=== PATIENT | female | born 1990 | race Caucasian/White ===

== ENCOUNTER 2017-10-01 21:04 | Inpatient (IN) | payer OTHER ==
[~2017-10-01] VITALS: Ht 172.7 cm; Wt 72.3 kg
[~2017-10-01 21:04] MED LIST: MEDR150I INJ
[2017-10-01] MEDS ORDERED: SODIUM CHLORIDE 0.9% 1000ML 1,000 ML IV STA (21:28)
[2017-10-01] MEDS ORDERED: OPTIRAY 320 IV PRN (21:45)
[2017-10-01 21:50] LABS: BASO % 0.3 %; BASO ABS # 0.03 K/uL (0-0.2); EOS % 2.4 %; EOS ABS # 0.23 K/uL (0-0.5); HEMOGLOBIN 12.1 g/dL (12.0-16.0); IG# 0.02 K/uL (0.00-0.02); LYMPH % 12.8 %; LYMPH ABS # 1.25 K/uL (1.2-3.4); MEAN CELL VOLUME 121.7 fL (80-100); MEAN CORPUSCULAR HGB CONC 37.8 g/dl (32-36); MEAN PLATELET VOLUME 9.8 fL (7.4-10.4); MONO % 10.6 %; MONO ABS # 1.03 K/uL (0.11-0.59); NEUT % 73.7 %; PLATELET COUNT 323 K/uL (130-400); RED CELL DISTRIBUTION WIDTH CV 15.2 % (11.5-14.5); RED CELL DISTRIBUTION WIDTH SD 66.4 fL (36.4-46.3); WHITE BLOOD COUNT 9.76 K/uL (4.8-10.8)
[2017-10-01] MEDS ORDERED: MEDR150I INJ (21:53)
[2017-10-01] MEDS ORDERED: IBUP-1050 PO (21:53)
[2017-10-01 22:22] LABS: ISTAT CREATININE 0.5 mg/dl (0.6-1.3); ISTAT IONIZED CALCIUM 1.17 mmol/l (1.12-1.32)
--- NOTE | 2017-10-01 22:38 | DIAGNOSTIC IMAGING REPORT ---
(CHEST FOR PE) ANGIO WITH CT DOSE: 188.47 mGy.cm HISTORY: 27 years-old Female presents with acute left leg swelling. Clinical concern for DVT and pulmonary embolus. TECHNIQUE: Multiple CTA images of the chest were obtained after the intravenous administration of 64 ml Optiray 320. Coronal and sagittal MIPS were obtained from the axial data set and were submitted for review. A dose lowering technique was utilized adhering to the principles of ALARA. COMPARISON: None. FINDINGS: CTA: Heart is normal in size without pericardial effusion. Thoracic aorta is normal in course and caliber without aneurysm or dissection. Imaged great vessels are patent. Ovoid peripherally hyperdense structure within the IVC at the level of the liver measures 11 x 8 mm and measures up to 3.5 cm in length. There is suboptimal opacification of the pulmonary arterial tree. Evaluation of the segmental and subsegmental branches limited secondary to respiratory motion. There are multiple filling defects noted within the distal right lower lobe are, segmental and subsegmental branches of the basal right lower lobe nicely seen on images 110-121 of series 4. Additionally, there is probable pulmonary emboli within lobar and segmental branches of the left lower lobe. No evidence of right heart strain. CT CHEST: Thyroid is mildly heterogeneous without dominant thyroid nodule identified. No pathologic adenopathy identified. No pneumothorax, pleural effusion, focal airspace consolidation or overt pulmonary edema. No focal pulmonary infarction. Minimal dependent bibasilar atelectasis. The central airways appear patent. Imaged upper abdominal structures are within normal limits. Soft tissues are within normal limits. Bones appear intact. IMPRESSION: 1. Suboptimal evaluation of the pulmonary arterial tree secondary to contrast bolus timing and respiratory motion. Pulmonary emboli are present within the distal right lower lobar, segmental and subsegmental branches of the basal right lower lobe. No evidence of right heart strain or pulmonary infarction. 2. Ill-defined peripherally hyperdense structure within the IVC is noted suggesting peripheral calcifications or peripheral reflux of contrast around a thrombus measuring up to 3.5 cm in length, partially imaged and nicely seen on the coronal and sagittal images. Correlation with CT of the abdomen and pelvis with IV contrast recommended to further characterize. The above report was generated using voice recognition software. It may contain grammatical, syntax or spelling errors. Electronically signed by: Boone Ge M.D. 10/01/2017 10:36 PM Dictated Date/Time: 10/01/2017 10:24 PM
[2017-10-01] MEDS ORDERED: HEPARIN SOD (PORCINE) 1000 UNIT/ML 10 ML VIAL ONE (22:53)
[2017-10-01] MEDS ORDERED: HEPARIN 25000 UNIT/500 ML D5W ONE (22:54)
[2017-10-01 23:06] LABS: INR 1.1 (0.9-1.1); PTT PATIENT 22.2 SECONDS (21.0-31.0)
[2017-10-01 23:38] LABS: ALBUMIN 3.4 gm/dl (3.4-5.0); BLOOD UREA NITROGEN 7 mg/dl (7-18); CALCIUM 8.3 mg/dl (8.5-10.1); CARBON DIOXIDE 26 mmol/L (21-32); CREATININE 0.61 mg/dl (0.60-1.20); GLUCOSE 95 mg/dl (70-99); SODIUM 136 mmol/L (136-145)
[2017-10-01] MEDS ORDERED: NSS + 20MEQ KCL 1000ML 1,000 ML IV ONE (23:45)
[2017-10-01] MEDS ORDERED: ACETAMINOPHEN 325 MG TAB PO PRN (23:45)
[2017-10-01] MEDS ORDERED: MoRPHine SULFATE 4 MG/ML 1 ML CARP\\VIAL IV PRN (23:45)
[2017-10-01] MEDS ORDERED: LORAZEPAM 2 MG/ML 1 ML VIAL IV PRN (23:45)
[2017-10-01] MEDS ORDERED: PROCHLORPERAZINE INJ 5 MG in SYRINGE 4 ML IV PRN (23:45)
[2017-10-01 23:49] LABS: ALKALINE PHOSPHATASE 84 U/L (45-117); ALT/SGPT 18 U/L (12-78); AST/SGOT 11 U/L (15-37); TOTAL PROTEIN 7.5 gm/dl (6.4-8.2)
[2017-10-02 00:10] VITALS: BP 138/89; PULSE 110; TEMP 37.2; O2SAT 96; Ht 172.7 cm; Wt 72.3 kg
[2017-10-02] MEDS ORDERED: POTASSIUM CHLORIDE 10 MEQ TABCR PO SCH (00:30)
[2017-10-02] MEDS ORDERED: HEPARIN 25,000 UNIT/500ML D5W 500 ML IV PRN (00:30)
[2017-10-02] MEDS ORDERED: LORAZEPAM INJ 0.5 MG in SYRINGE 0.75 ML IV PRN (00:30)
--- NOTE | 2017-10-02 00:37 | EMERGENCY ROOM VISIT NOTE ---
History Report prepared by Kayla: Cornelia Sandoval Under the Supervision of: Preston FrancisO. First contact with patient: 21:16 Chief Complaint: SWELLING TO EXTREMITY Stated Complaint: LEFT LEG SWELLING History of Present Illness The patient is a 27 year old female who presents to the Emergency Room with complaints of persistent left leg swelling that began 2 days ago. She notes that she noticed the swelling but avoided it until today. Pt denies headache, change in vision, fevers, chest pain, shortness of breath, nausea, vomiting, diarrhea, pain with urination, and melena. The patient states that she a blood clot diagnosed a year and a half ago. At that time she was never placed on blood thinners. She notes she takes Depo. The patient states she works at [employer]. She denies a history of cancer. She notes she is a smoker. Source of History: patient Onset: 2 days ago Position: leg (left) Quality: other (left leg swelling) Timing: other (persistent) Associated Symptoms: No fevers, No headache, No chest pain, No SOB, No nausea, No vomiting, No melena, No diarrhea Review of Systems See HPI for pertinent positives & negatives. A total of 10 systems reviewed and were otherwise negative. Past Medical & Surgical Medical Problems: (1) Pulmonary embolism Family History Patient reports no known family medical history. Social History Smoking Status: Current Every Day Smoker Smokeless Tobacco Use: No Alcohol Use: none Drug Use: none Marital Status: in relationship Housing Status: lives with significant other Occupation Status: employed Current/Historical Medications Scheduled Medroxyprogesterone Acetate (C (Depo-Provera Contraceptiv), 1 DOSE INJ Q3MO Scheduled PRN Ibuprofen (Advil), 200-600 MG PO Q4H PRN for Pain or Fever Allergies Coded Allergies: No Known Allergies (Unverified , NONE, 10/01/17) Physical Exam Vital Signs Date Time Temp Pulse Resp B/P (MAP) Pulse Ox O2 Delivery O2 Flow Rate FiO2 10/01/17 21:12 37.1 113 16 166/104 100 Room Air Physical Exam GENERAL: Sitting up in bed, disheveled, in no acute distress EYE EXAM: normal conjunctiva. OROPHARYNX: no exudate, no erythema, lips, buccal mucosa, and tongue normal and mucous membranes are moist NECK: supple, no nuchal rigidity, no adenopathy, non-tender LUNGS: Clear to auscultation. Normal chest wall mechanics HEART: Tachycardic rate. No murmurs, S1 normal and S2 normal ABDOMEN: abdomen soft, non-tender, normo-active bowel sounds, no masses, no rebound or guarding. BACK: Back is symmetrical on inspection and there is no deformity, no midline tenderness, no CVA tenderness. SKIN: no rashes and no bruising UPPER EXTREMITIES: upper extremities are grossly normal. LOWER EXTREMITIES: left lower extremity is swollen, DP and PT are intact, slight pallor and blue discoloration. Bedside ultrasound shows DVT present. NEURO EXAM: Normal sensorium, cranial nerves II-XII grossly intact, normal speech, no gross weakness of arms, no gross weakness of legs. Medical Decision & Procedures ER Provider Diagnostic Interpretation: Radiology results as stated below per my review and the radiologist's interpretation: (CHEST FOR PE) ANGIO WITH CT DOSE: 188.47 mGy.cm HISTORY: 27 years-old Female presents with acute left leg swelling. Clinical concern for DVT and pulmonary embolus. TECHNIQUE: Multiple CTA images of the chest were obtained after the intravenous administration of 64 ml Optiray 320. Coronal and sagittal MIPS were obtained from the axial data set and were submitted for review. A dose lowering technique was utilized adhering to the principles of ALARA. COMPARISON: None. FINDINGS: CTA: Heart is normal in size without pericardial effusion. Thoracic aorta is normal in course and caliber without aneurysm or dissection. Imaged great vessels are patent. Ovoid peripherally hyperdense structure within the IVC at the level of the liver measures 11 x 8 mm and measures up to 3.5 cm in length. There is suboptimal opacification of the pulmonary arterial tree. Evaluation of the segmental and subsegmental branches limited secondary to respiratory motion. There are multiple filling defects noted within the distal right lower lobe are, segmental and subsegmental branches of the basal right lower lobe nicely seen on images 110-121 of series 4. Additionally, there is probable pulmonary emboli within lobar and segmental branches of the left lower lobe. No evidence of right heart strain. CT CHEST: Thyroid is mildly heterogeneous without dominant thyroid nodule identified. No pathologic adenopathy identified. No pneumothorax, pleural effusion, focal airspace consolidation or overt pulmonary edema. No focal pulmonary infarction. Minimal dependent bibasilar atelectasis. The central airways appear patent. Imaged upper abdominal structures are within normal limits. Soft tissues are within normal limits. Bones appear intact. IMPRESSION: 1. Suboptimal evaluation of the pulmonary arterial tree secondary to contrast bolus timing and respiratory motion. Pulmonary emboli are present within the distal right lower lobar, segmental and subsegmental branches of the basal right lower lobe. No evidence of right heart strain or pulmonary infarction. 2. Ill-defined peripherally hyperdense structure within the IVC is noted suggesting peripheral calcifications or peripheral reflux of contrast around a thrombus measuring up to 3.5 cm in length, partially imaged and nicely seen on the coronal and sagittal images. Correlation with CT of the abdomen and pelvis with IV contrast recommended to further characterize. The above report was generated using voice recognition software. It may contain grammatical, syntax or spelling errors. Electronically signed by: Boone Ge M.D. 10/01/2017 10:36 PM Dictated Date/Time: 10/01/2017 10:24 PM Laboratory Results 10/01/17 21:28 Red Blood Count 2.63, Mean Corpuscular Volume 121.7, Mean Corpuscular Hemoglobin 46.0, Mean Corpuscular Hemoglobin Concent 37.8, Mean Platelet Volume 9.8, Neutrophils (%) (Auto) 73.7, Lymphocytes (%) (Auto) 12.8, Monocytes (%) ( Auto) 10.6, Eosinophils (%) (Auto) 2.4, Basophils (%) (Auto) 0.3, Neutrophils # (Auto) 7.20, Lymphocytes # (Auto) 1.25, Monocytes # (Auto) 1.03, Eosinophils # ( Auto) 0.23, Basophils # (Auto) 0.03 10/01/17 22:46 Test 10/01/17 21:28 10/01/17 21:38 10/01/17 21:43 10/01/17 22:46 White Blood Count 9.76 K/uL (4.8-10.8) Red Blood Count 2.63 M/uL (4.2-5.4) Hemoglobin 12.1 g/dL (12.0-16.0) Hematocrit 32.0 % (37-47) Mean Corpuscular Volume 121.7 fL (80-100) Mean Corpuscular Hemoglobin 46.0 pg (25-34) Mean Corpuscular Hemoglobin Concent 37.8 g/dl (32-36) Platelet Count 323 K/uL (130-400) Mean Platelet Volume 9.8 fL (7.4-10.4) Neutrophils (%) (Auto) 73.7 % Lymphocytes (%) (Auto) 12.8 % Monocytes (%) (Auto) 10.6 % Eosinophils (%) (Auto) 2.4 % Basophils (%) (Auto) 0.3 % Neutrophils # (Auto) 7.20 K/uL (1.4-6.5) Lymphocytes # (Auto) 1.25 K/uL (1.2-3.4) Monocytes # (Auto) 1.03 K/uL (0.11-0.59) Eosinophils # (Auto) 0.23 K/uL (0-0.5) Basophils # (Auto) 0.03 K/uL (0-0.2) RDW Standard Deviation 66.4 fL (36.4-46.3) RDW Coefficient of Variation 15.2 % (11.5-14.5) Immature Granulocyte % (Auto) 0.2 % Immature Granulocyte # (Auto) 0.02 K/uL (0.00-0.02) Polychromasia 1+ Macrocytosis PRESENT Human Chorionic Gonadotropin, Qual NEG (NEG) Bedside Hemoglobin 11.9 g/dl (12.0-16.0) Bedside Hematocrit 35 % (37-47) Bedside Sodium 135 mEq/L (135-144) Bedside Potassium 3.0 mEq/L (3.3-5.0) Bedside Chloride 98 mEq/L (101-112) Bedside Total CO2 24 mEq/l (24-31) Bedside Blood Urea Nitrogen 4 mg/dl (7-18) Bedside Creatinine 0.5 mg/dl (0.6-1.3) Bedside Glucose (other) 120 mg/dl (70-99) Bedside Ionized Calcium (Geeta) 1.17 mmol/l (1.12-1.32) Prothrombin Time 11.3 SECONDS (9.0-12.0) Prothromb Time International Ratio 1.1 (0.9-1.1) Activated Partial Thromboplast Time 22.2 SECONDS (21.0-31.0) Partial Thromboplastin Ratio 0.9 Anion Gap 8.0 mmol/L (3-11) Est Creatinine Clear Calc Drug Dose 138.5 ml/min Estimated GFR () 143.0 Estimated GFR (Non- 123.4 BUN/Creatinine Ratio 11.8 (10-20) Calcium Level 8.3 mg/dl (8.5-10.1) Magnesium Level 2.0 mg/dl (1.8-2.4) Total Bilirubin 0.9 mg/dl (0.2-1) Direct Bilirubin 0.3 mg/dl (0-0.2) Aspartate Amino Transf (AST/SGOT) 11 U/L (15-37) Alanine Aminotransferase (ALT/SGPT) 18 U/L (12-78) Alkaline Phosphatase 84 U/L (45-117) Troponin I < 0.015 ng/ml (0-0.045) Total Protein 7.5 gm/dl (6.4-8.2) Albumin 3.4 gm/dl (3.4-5.0) Thyroid Stimulating Hormone (TSH) 1.790 uIu/ml (0.300-4.500) Medications Administered Medications (Trade) Dose Ordered Sig/Pedrito Route Start Time Stop Time Status Last Admin Dose Admin Sodium Chloride 1,000 ml @ 999 mls/hr Q1H1M STAT IV 10/01/17 21:28 10/01/17 22:28 DC 10/01/17 21:44 999 MLS/HR Heparin Sodium (Porcine) (Heparin Iv Bolus) 10,000 unit STK-MED ONCE .ROUTE 10/01/17 22:53 10/01/17 22:54 DC 10/01/17 23:15 5,000 UNIT Heparin Sodium/ Dextrose (Heparin 25,000 Unit/500ml D5W) 25,000 unit STK-MED ONCE .ROUTE 10/01/17 22:54 10/01/17 22:55 DC 10/01/17 23:16 1,200 UNIT ECG Indication: other (leg swelling) Rate (beats per minute): 136 Rhythm: sinus tachycardia Findings: T-wave inversion (Lateral and inferior) Change: Patient's Electrocardiogram interpreted by pr ED Course ED COURSE: Vital signs were reviewed and showed tachycardic rate- situational. The patients medical record was reviewed The above diagnostic studies were performed and reviewed. ED treatments and interventions as stated above. 2119: The patient was evaluated in room A3. A complete history and physical examination was performed. 2127: Ordered Sodium Chloride 1000 ml @ 999 mls/hr IV. 2144: Ordered Ioversol 100 ml IV. 2150: Ordered I STAT. 2239: Ordered Heparin Sodium/Dextrose 1ea. 6: I reevaluated the patient, who was resting comfortably. I updated the patient on test findings. She denied bleeding risk factors. 2253: Ordered Heparin Sodium (Porcine) 10,000 unit. 2254: Ordered Heparin Sodium/Dextrose 25,000 unit. 2255: I reviewed the patient's case with Dr. Mares. He will evaluate the patient for further management. Medical Decision Differential diagnosis: Etiologies such as DVT, musculoskeletal, infection, joint effusion, trauma, lymphedema, idiopathic, CHF, as well as others were entertained. Patient is a 27-year-old female who presents to ER for increased swelling of the left lower extremity. She does have good pulses. My bedside ultrasound confirms that she has a sense of clot in the left lower extremity. Based on this I performed an i-STAT and a CT PE which confirmed PEs. There is a question whether there is a clot in the IVC. With her recent contrast load I do not feel was beneficial to received here at this time as were coming on heparin drip and bolus. She had no bleeding risk factors. She declined any recent trauma, head bleeds, coughing up blood, vomiting blood, urinating blood, blood in her stool. Informed her of the risk of heparin. EKG did show a sinus tachycardia with diffuse ST depressions. I do favor this is rate related to her rate and PEs. I discussed case with internal medicine. Formal ultrasound eventually did result in confirmed diffuse DVT in the left lower extremity. She 'll likely need evaluation by vascular surgery tomorrow morning. Discussed with internal medicine and was updated at bedside. Patient was admitted. Medication Reconcilliation Current Medication List: was personally reviewed by me Consults Time Called: 2254 Consulting Physician: [place]. [place]ares, [facility] [place] Call: 2254 I reviewed the patient's case with Dr. Mares. He will evaluate the patient for further management. Impression Primary Impression: Pulmonary embolism Additional Impression: DVT, lower extremity Critical Care I have personally spent 35 minutes of critical care time in the direct management of this patient. This includes bedside care, interpretation of diagnostic studies, and testing, discussion with consultants, patient, and family members, and other required patient management activities. This 35 minutes is in excess of all separately billable procedures. Scribe Attestation The scribe's documentation has been prepared under my direction and personally reviewed by me in its entirety. I confirm that the note above accurately reflects all work, treatment, procedures, and medical decision making performed by me. Departure Information Dispostion Being Evaluated By Hospitalist Referrals No Doctor, Assigned (PCP) Forms HOME CARE DOCUMENTATION FORM, IMPORTANT VISIT INFORMATION, WORK / SCHOOL INSTRUCTIONS Patient Instructions My [facility] Problem Qualifiers Primary Impression: Pulmonary embolism Pulmonary embolism type: other Chronicity: acute Acute cor pulmonale presence: without acute cor pulmonale Qualified Codes: I26.99 - Other pulmonary embolism without acute cor pulmonale Additional Impression: DVT, lower extremity Affected thrombotic vein of extremity: femoral Chronicity: acute Laterality : left Qualified Codes: I82.412 - Acute embolism and thrombosis of left femoral vein
--- NOTE | 2017-10-02 00:39 | HISTORY & PHYSICAL EXAMINATION ---
DATE OF ADMISSION: 10/01/2017 PRIMARY CARE PHYSICIAN: Dr. Gutierrez. CHIEF COMPLAINT: Left leg swelling. HISTORY OF PRESENT ILLNESS: History obtained from patient and records. Medical history significant for ongoing tobacco abuse. Last week patient was bedridden for about a day due to a flulike illness. The last few days, patient subsequently noted tense and painful left lower extremity swelling. No fever, no chills, worsening pain. No chest pain or shortness of breath. No recollection of trauma. Patient brought to the Emergency Room. Patient noted to be tachycardic in the ER. CTA showed pulmonary emboli within the distal right lower segmental and segmental branches of the right lower lobe. No evidence of heart strain ill-defined, possible thrombosis on the IVC. IV heparin started in the ER. No previous episodes. No recent prolonged travel. No known family history of clots as per patient account. MEDICAL HISTORY: As above. SURGERIES: section. HOME MEDICATIONS: Depo-Provera, contraception, Advil. ALLERGIES: No known drug allergies. FAMILY HISTORY: Stroke. PERSONAL AND SOCIAL HISTORY: Half pack daily. Occasional alcoholic beverage intake . [employer] employee. REVIEW OF SYSTEMS: As per HPI. All 10 systems reviewed. All other ROS negative. PHYSICAL EXAMINATION: VITAL SIGNS: Blood pressure was noted to be 166/104, pulse rate 113, RR 16, temperature 37.8, sats 100 on room air. GENERAL: Noted to be slightly anxious, no respiratory distress. SKIN: Normal color, warm. HEENT: Pale palpebral conjunctiva. No ptosis. Dry mucosa. NECK: Supple, nontender. CHEST: Clear to auscultation. No tenderness. HEART: Regular rate and rhythm, no murmur. ABDOMEN: Some distention, nontender. EXTREMITIES: Tense swollen left lower extremity, tender. NEUROLOGIC: Coherent. No gross focality. LABORATORY DATA: Hemoglobin was noted to be 12.1, hematocrit 32, white blood cell count 9.7, platelets noted to be 323. Sodium 136, potassium 3, chloride 102, CO2 26, BUN 7, creatinine 0.6, glucose was noted to be 95. CTA as above. EKG as per my interpretation: Sinus tachycardia, possible left atrial enlargement, T-wave inversion inferior leads ASSESSMENT: 1. Acute pulmonary embolism likely from extensive left lower extremity clot. Patient predisposed with hormonal contraception, immobilization from recent viral illness 2. Situational hypertension Possibly long-standing w/ note of LAE on EKG. 3. hypokalemia, clinical dehydration secondary to recent illness 4. ongoing tobacco abuse PLAN: PCU IV heparin. Defer discussion regarding choice of oral anticoagulant between patient and AM provider. Follow left lower extremity venous Doppler ultrasound results Patient to contemplate Vascular Surgery consultation for possible localized LLE thrombolytic therapy due to extreme discomfort from market left lower extremity swelling. Patient counselled about hormonal contraception and attendant thromboembolic risks. Outpatient CLIENT ADMINISTRATOR follow-up to discuss alternative methods of contraception. Analgesia, monitor BP May need to initiate maintenance medication if with persistent BP elevation. Replace potassium. Nicotine patch. DVT prophylaxis, IV heparin. Full code. MTDD
[2017-10-02] MEDS ORDERED: NSS + 20MEQ KCL 1000ML 1,000 ML IV ONE (00:45)
[2017-10-02] MEDS: TRAMADOL HCL 50 MG TAB PO PRN ×2 (00:57→17:48)
[2017-10-02] MEDS ORDERED: POTASSIUM CHLORIDE 10 MEQ TABCR PO ONE (02:00)
[2017-10-02] MEDS ORDERED: CALCIUM GLUCONATE 10% 1,000 MG in SODIUM CHLORIDE 0.9% 50ML 50 ML IV STA (02:42)
[2017-10-02 04:00] VITALS: BP 136/84; PULSE 102; TEMP 37; O2SAT 99
[2017-10-02 05:35] LABS: BASO % 0.3 %; BASO ABS # 0.02 K/uL (0-0.2); EOS % 2.2 %; EOS ABS # 0.14 K/uL (0-0.5); HEMATOCRIT 25.7 % (37-47); HEMOGLOBIN 9.4 g/dL (12.0-16.0); IG# 0.01 K/uL (0.00-0.02); LYMPH % 22.4 %; MEAN CORPUSCULAR HGB CONC 36.6 g/dl (32-36); MEAN PLATELET VOLUME 9.3 fL (7.4-10.4); MONO % 11.4 %; MONO ABS # 0.71 K/uL (0.11-0.59); NEUT % 63.5 %; NEUT ABS # 3.97 K/uL (1.4-6.5); PLATELET COUNT 238 K/uL (130-400); RED CELL DISTRIBUTION WIDTH CV 15.4 % (11.5-14.5); RED CELL DISTRIBUTION WIDTH SD 67.5 fL (36.4-46.3); WHITE BLOOD COUNT 6.25 K/uL (4.8-10.8)
[2017-10-02 05:36] LABS: PTT PATIENT 39.6 SECONDS (21.0-31.0)
[2017-10-02 06:09] LABS: BLOOD UREA NITROGEN 5 mg/dl (7-18); CALCIUM 8.4 mg/dl (8.5-10.1); CARBON DIOXIDE 23 mmol/L (21-32); CREATININE 0.39 mg/dl (0.60-1.20); GLUCOSE 99 mg/dl (70-99); SODIUM 136 mmol/L (136-145)
--- NOTE | 2017-10-02 07:07 | DIAGNOSTIC IMAGING REPORT ---
ULTRASOUND LEFT LOWER EXTREMITY VENOUS CLINICAL HISTORY: Left leg swelling. COMPARISON STUDY: No priors. TECHNIQUE: Real-time, grayscale, and color Doppler sonography of the deep veins of the left lower extremity was performed from the inguinal crease to the calf. Compression and augmentation were utilized. FINDINGS: There is nearly occlusive deep venous thrombosis seen extending from the left common femoral vein to the popliteal vein. Superficial venous thrombus is seen within the greater saphenous vein. The visualized calf veins are patent. IMPRESSION: Extensive and nearly occlusive left lower extremity deep venous thrombosis as above. Electronically signed by: Kirit Cooper M.D. 10/02/2017 7:05 AM Dictated Date/Time: 10/02/2017 7:04 AM
[2017-10-02] MEDS ORDERED: HEPARIN IV BOLUS 5,000 UNIT in SYRINGE 0 ML IV ONE (07:15)
[2017-10-02 07:25] VITALS: BP 117/73; PULSE 105; TEMP 36.8; O2SAT 98
[2017-10-02] MEDS ORDERED: NICOTINE 14 MG/24 HR TDSY TD SCH (09:00)
[2017-10-02] MEDS ORDERED: OPTIRAY 320 IV PRN (11:30)
--- NOTE | 2017-10-02 11:39 | Progress Note ---
Subjective Date of Service: Oct 02, 2017. Subjective Pt evaluation today including: conversation w/ patient, physical exam, lab review, review of studies, review of inpatient medication list Saw/examined the patient in room 280 She has no shortness of breath/chest pain/palpitations She is c/o LLE swelling, pain Problem List Medical Problems: (1) DVT, lower extremity Status: Acute Review of Systems Respiratory: No cough, No sputum, No shortness of breath, No dyspnea on exertion, No dyspnea at rest Cardiac: No chest pain, No palpitations Musculoskeletal: + see HPI, + joint pain, + muscle pain, + swelling Medications Current Inpatient Medications Medications (Trade) Dose Ordered Sig/Pedrito Route Start Time Stop Time Status Last Admin Dose Admin Ioversol (Optiray 320) 100 ml UD PRN IV 10/01/17 21:45 10/05/17 21:44 Acetaminophen (Tylenol Tab) 650 mg Q4H PRN PO 10/01/17 23:45 10/31/17 23:44 Tramadol HCl (Ultram Tab) not relieved by tylenol @ Q6H PRN PO 10/01/17 23:45 10/31/17 23:44 10/02/17 00:57 50 MG Morphine Sulfate (MoRPHine SULFATE INJ) 4 mg Q3H PRN IV 10/01/17 23:45 10/15/17 23:44 Lorazepam (Ativan Inj) 0.5 mg Q4H PRN IV 10/01/17 23:45 10/31/17 23:44 Prochlorperazine Edisylate 5 mg/ Syringe 5 ml @ 5 mls/min Q6H PRN IV 10/01/17 23:45 10/31/17 23:44 Nicotine (Nicoderm Cq 14MG Patch) 1 patch QAM TD 10/02/17 09:00 11/01/17 08:59 Miscellaneous (Remove Nicoderm Patch) 1 ea HS N/A 10/02/17 21:00 11/01/17 20:59 Heparin Sodium/ Dextrose 500 ml @ 29 mls/hr [id number] PRN IV 10/02/17 00:30 11/01/17 00:29 10/02/17 07:37 29 MLS/HR Lorazepam 0.5 mg/ Syringe 1 ml @ 1 mls/min Q4H PRN IV 10/02/17 00:30 11/01/17 00:29 Ioversol (Optiray 320) 125 ml UD PRN IV 10/02/17 11:30 10/06/17 11:29 UNV Objective Vital Signs Date Time Temp Pulse Resp B/P (MAP) Pulse Ox O2 Delivery O2 Flow Rate FiO2 10/02/17 08:00 Room Air 10/02/17 07:25 36.8 105 20 117/73 (88) 98 Room Air 10/02/17 04:00 37.0 102 16 136/84 (101) 99 Room Air 10/02/17 04:00 Room Air 10/02/17 00:10 37.2 110 18 138/89 96 Room Air 10/01/17 23:44 137 18 158/96 99 Room Air 10/01/17 21:12 37.1 113 16 166/104 100 Room Air Physical Exam General Appearance: no apparent distress Respiratory/Chest: lungs clear, normal breath sounds, no respiratory distress, no accessory muscle use Cardiovascular: no murmur, + tachycardia Extremities: + swelling, + pertinent finding (LLE swelling, cool to touch) Laboratory Results Last 24 Hours Test 10/01/17 21:28 10/01/17 21:38 10/01/17 21:43 10/01/17 22:46 White Blood Count 9.76 K/uL Red Blood Count 2.63 M/uL Hemoglobin 12.1 g/dL Hematocrit 32.0 % Mean Corpuscular Volume 121.7 fL Mean Corpuscular Hemoglobin 46.0 pg Mean Corpuscular Hemoglobin Concent 37.8 g/dl Platelet Count 323 K/uL Mean Platelet Volume 9.8 fL Neutrophils (%) (Auto) 73.7 % Lymphocytes (%) (Auto) 12.8 % Monocytes (%) (Auto) 10.6 % Eosinophils (%) (Auto) 2.4 % Basophils (%) (Auto) 0.3 % Neutrophils # (Auto) 7.20 K/uL Lymphocytes # (Auto) 1.25 K/uL Monocytes # (Auto) 1.03 K/uL Eosinophils # (Auto) 0.23 K/uL Basophils # (Auto) 0.03 K/uL RDW Standard Deviation 66.4 fL RDW Coefficient of Variation 15.2 % Immature Granulocyte % (Auto) 0.2 % Immature Granulocyte # (Auto) 0.02 K/uL Polychromasia 1+ Macrocytosis PRESENT Human Chorionic Gonadotropin, Qual NEG Bedside Hemoglobin 11.9 g/dl Bedside Hematocrit 35 % Bedside Sodium 135 mEq/L Bedside Potassium 3.0 mEq/L Bedside Chloride 98 mEq/L Bedside Total CO2 24 mEq/l Anion Gap 17.0 mmol/L 8.0 mmol/L Bedside Blood Urea Nitrogen 4 mg/dl Bedside Creatinine 0.5 mg/dl Bedside Glucose (other) 120 mg/dl Bedside Ionized Calcium (Geeta) 1.17 mmol/l Prothrombin Time 11.3 SECONDS Prothromb Time International Ratio 1.1 Activated Partial Thromboplast Time 22.2 SECONDS Partial Thromboplastin Ratio 0.9 Sodium Level 136 mmol/L Potassium Level 3.0 mmol/L Chloride Level 102 mmol/L Carbon Dioxide Level 26 mmol/L Blood Urea Nitrogen 7 mg/dl Creatinine 0.61 mg/dl Est Creatinine Clear Calc Drug Dose 138.5 ml/min Estimated GFR () 143.0 Estimated GFR (Non- 123.4 BUN/Creatinine Ratio 11.8 Random Glucose 95 mg/dl Calcium Level 8.3 mg/dl Magnesium Level 2.0 mg/dl Total Bilirubin 0.9 mg/dl Direct Bilirubin 0.3 mg/dl Aspartate Amino Transf (AST/SGOT) 11 U/L Alanine Aminotransferase (ALT/SGPT) 18 U/L Alkaline Phosphatase 84 U/L Troponin I < 0.015 ng/ml Total Protein 7.5 gm/dl Albumin 3.4 gm/dl Thyroid Stimulating Hormone (TSH) 1.790 uIu/ml Test 10/02/17 05:11 White Blood Count 6.25 K/uL Red Blood Count 2.09 M/uL Hemoglobin 9.4 g/dL Hematocrit 25.7 % Mean Corpuscular Volume 123.0 fL Mean Corpuscular Hemoglobin 45.0 pg Mean Corpuscular Hemoglobin Concent 36.6 g/dl Platelet Count 238 K/uL Mean Platelet Volume 9.3 fL Neutrophils (%) (Auto) 63.5 % Lymphocytes (%) (Auto) 22.4 % Monocytes (%) (Auto) 11.4 % Eosinophils (%) (Auto) 2.2 % Basophils (%) (Auto) 0.3 % Neutrophils # (Auto) 3.97 K/uL Lymphocytes # (Auto) 1.40 K/uL Monocytes # (Auto) 0.71 K/uL Eosinophils # (Auto) 0.14 K/uL Basophils # (Auto) 0.02 K/uL RDW Standard Deviation 67.5 fL RDW Coefficient of Variation 15.4 % Immature Granulocyte % (Auto) 0.2 % Immature Granulocyte # (Auto) 0.01 K/uL Polychromasia 1+ Anisocytosis PRESENT Macrocytosis PRESENT Activated Partial Thromboplast Time 39.6 SECONDS Partial Thromboplastin Ratio 1.5 Sodium Level 136 mmol/L Potassium Level 4.0 mmol/L Chloride Level 107 mmol/L Carbon Dioxide Level 23 mmol/L Anion Gap 6.0 mmol/L Blood Urea Nitrogen 5 mg/dl Creatinine 0.39 mg/dl Est Creatinine Clear Calc Drug Dose 216.6 ml/min Estimated GFR () > 150.0 Estimated GFR (Non- 142.9 BUN/Creatinine Ratio 13.5 Random Glucose 99 mg/dl Calcium Level 8.4 mg/dl Assessment and Plan This is a 27 year old female with a PMH of tobacco use disorder - presents with multiple PEs and Acute LLE DVT Pulmonary Emboli Acute LLE DVT likely secondary to contraceptives currently on IV heparin vascular surgery consulted for nearly occlusive LLE DVT which is worsening CT venogram of abdomen/pelvis pending discussed anticoagulation - patient is okay with NOAC (Xarelto) Tobacco Use Disorder counseled on cessation, not interested at this time FULL CODE
[2017-10-02 11:53] VITALS: BP 114/71; PULSE 95; TEMP 36.7; O2SAT 100
--- NOTE | 2017-10-02 12:00 | Surgery Consultation ---
Consultation Date of Service Oct 02, 2017. Chief Complaint LLE DVT, PE History of Present Illness The patient is a 27 year old female without significant medical hx, admitted with LLE proximal occlusive DVT and PE, seen in consultation today for eval. Pt states hx of superficial phlebitis 1-2 yrs ago, not treated with AC. States she wasn't feeling well last week and was not as active as usual for a few days , but otherwise has been in normal health. 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 States not improving despite being on bedrest at [facility]. Admits pain in LLE d/t edema. Denies COX, fever, chills, chest pain, SOB, abd pain, N/V, rest pain, claudication, other complaints. Imaging demonstrates extensive LLE DVT from comm fem to popliteal, few PE's, and possible IVC thrombus. Vitals Vital Signs Past 12 Hours Date Time Temp Pulse Resp B/P (MAP) Pulse Ox O2 Delivery O2 Flow Rate FiO2 10/02/17 08:00 Room Air 10/02/17 07:25 36.8 105 20 117/73 (88) 98 Room Air 10/02/17 04:00 37.0 102 16 136/84 (101) 99 Room Air 10/02/17 04:00 Room Air 10/02/17 00:10 37.2 110 18 138/89 96 Room Air Allergies Coded Allergies: No Known Allergies (Unverified , NONE, 10/01/17) Home Medications Scheduled Medroxyprogesterone Acetate (C (Depo-Provera Contraceptiv), 1 DOSE INJ Q3MO Scheduled PRN Ibuprofen (Advil), 200-600 MG PO Q4H PRN for Pain or Fever Problem List Medical Problems: (1) Pulmonary embolism Surgical / Medical History Hx Cardiac Surgery: No Hx Abdominal Surgery: No Hx Cancer Surgery: No Hx Thoracic Surgery: No Hx Orthopedic: No Hx Urinary Tract Surgery: No Past Medical/Surgical History: Thrombophlebitis Family History Patient reports no known family medical history. Social History Smoking Status: Current Every Day Smoker Hx Tobacco Use In Past Year?: Yes Hx Alcohol Use - Type & Amnt: Yes Hx Substance Use -Type & Amnt: No Review of Systems Constitutional: No chills, No fever, No malaise Skin: + change in color Eyes: No visual changes ENMT: No sore throat Respiratory: No cough, No MILTON, No hemoptysis, No short of breath Cardiovascular: + edema, No chest pain, No palpitations, No syncope, No intermittent claudication Gastrointestinal: No abdominal pain, No nausea, No vomiting Genitourinary - Female: No dysuria, No hematuria Neurologic: No dizziness, No headache, No numbness, No tingling Physical Exam Constitutional: General Apperance: heathly-appearing, well-nourished, well-developed Level of Distress: NAD Ambulation: ambulating normally Psychiatric: Mental Status: active & alert, normal mood, normal affect Orientation: oriented except where noted, to time, to place, to person Memory: recent memory normal, remote memory normal Head: normocephalic, atraumatic Eyes: EOM: EOMI ENMT: normal ENT inspection, hearing grossly normal Neck: supple, trachea midline Lungs: Respiratory effort: no dyspnea Auscultation: breath sounds normal, no wheezing, no rales/crackles Cardiovascular: Apical Impulse: not displaced Heart Auscultation: RRR, no rubs, no gallops Peripheral Pulses: Pulses: full and equal, in all extremities except if noted Bruits: none appreciated Carotid Pulse: normal on the left, normal on the right Brachial Pulses: normal on the left, normal on the right Radial Pulse: normal on the left, normal on the right Femoral Pulse: normal on the left, normal on the right Posterior Tibialis Pulse: normal on the left, normal on the right Dorsalis Pedis Pulse: normal on the left, normal on the right Abdomen: Bowel Sounds: normal Inspection & Palpation: soft, non-distended, no tenderness, guarding & rebound Musculoskeletal: normal strength (5/5 throughout), normal tone Extremities: Upper Right: no cyanosis, no edema, no varicosities Upper Left: no cyanosis, no edema, no varicosities Lower Right: no cyanosis, no edema, no varicosities Lower Left: no cyanosis, edema (+4, with mild erythema) Neurologic: Cranial Nerves: grossly intact Sensation: grossly intact Assessment and Plan ASSESSMENT and PLAN: extensive LLE DVT PE possible IVC thrombus Pt discussed wtih Dr Morales, recommends CTV today to eval IVC thrombus and possible L iliac v compression, then LLE venogram with thrombolysis tomorrow in OR and recheck on mon. Pt to also have IVC filter insertion prior to thrombolysis. Discussed with pt and boyfriend, pt has concerns regarding staying in [facility] while her young children are at home and need her, as well as requiring time off work. Advised pt we can make her NPO for tomorrow and discuss with her again in morning prior to procedure. Pt agreeable to that, and plans to discuss further with her boyfriend.
--- NOTE | 2017-10-02 13:39 | DIAGNOSTIC IMAGING REPORT ---
CT VENOGRAM OF THE ABDOMEN AND PELVIS CLINICAL HISTORY: Deep venous thrombosis and pulmonary embolus. COMPARISON STUDY: Chest CT and left lower extremity venous ultrasound dated 10/01/2017. TECHNIQUE: Following the IV administration of 75 cc of Optiray 320, CT venogram of the abdomen and pelvis is performed from the lung bases to the proximal femora. Images are reviewed in the axial, sagittal, and coronal planes. IV contrast was administered without complication. Half dose contrast was utilized due to recent bolus. A dose lowering technique was utilized adhering to the principles of ALARA. CT DOSE: 451.43 mGy.cm FINDINGS: Lung bases: The heart is normal in size and without pericardial effusion. The lung bases are clear. Liver: The contrast-enhanced liver is normal in size, contour, and attenuation. There is no intrahepatic biliary ductal dilatation. The hepatic veins and portal veins are patent. Gallbladder: Unremarkable. Spleen: Normal in size and attenuation. Pancreas: Unremarkable. Adrenal glands: Unremarkable. Kidneys: The contrast enhanced kidneys are normal in size and without hydronephrosis. The kidneys enhance symmetrically. A subcentimeter cortical hypodensity in the right kidney seen on image #120 likely represents a cyst but is too small for definitive characterization. Abdominal vasculature: The abdominal aorta is normal in course and caliber. There is extensive thrombus identified throughout the inferior vena cava which is nearly occlusive. Focal thrombus below the diaphragm seen on image #86 appears to be calcified and may be chronic. There is thrombus identified in the right common iliac vein. The right extrarenal iliac vein and the right common femoral vein appear clear. Thrombus extends from the inferior vena cava throughout the left iliac vessels and into the left common femoral vein. Bowel: A small gastric diverticulum is incidentally noted. There is no bowel obstruction. The appendix is well-visualized and normal. Peritoneum: There is no intraperitoneal free air or abdominal ascites. Lymphadenopathy: None. Pelvic viscera: The bladder is filled with excreted contrast and normal in appearance. The uterus and adnexa are normal as visualized noting bilateral ovarian follicles. Skeletal structures: No lytic or blastic lesions are seen. Soft tissues: There is asymmetric superficial and deep soft tissue edema seen in the left thigh. IMPRESSION: 1. There is extensive and nearly occlusive thrombus seen throughout the inferior vena cava. Calcified thrombus is seen just below the diaphragm and may be chronic. 2. On the right, thrombus extends into the right common iliac vein. 3. On the left, thrombus extends throughout the iliac veins and into the left common femoral vein. This is near occlusive to occlusive. 4. There is significant an asymmetric superficial and deep soft tissue edema in the left thigh, likely related to venous conclusion. 5. Additional findings as above. Electronically signed by: Kirit Cooper M.D. 10/02/2017 1:38 PM Dictated Date/Time: 10/02/2017 1:30 PM
[2017-10-02 14:16] LABS: PTT PATIENT 54.6 SECONDS (21.0-31.0)
--- NOTE | 2017-10-02 14:47 | Progress Note ---
Progress Note Date of Service Oct 02, 2017. Progress Note CT scan showed thrombus of the entire IVC. The IVC above the renals had calcifications in the thrombus. This suggests old previous thrombosis. There is high risk of pulmonary embolism when doing TPA in an totally occluded IVC. Best treatment is anticoagulation and avoiding thrombogenic medications and cigarettes. Would use compression stockings for the edema. No vascular follow up needed. Can follow up with her primary physician Thank you very much for letting me participate in the care of this patient.
[2017-10-02] MEDS ORDERED: XRL15 PO (15:15)
[2017-10-02] MEDS ORDERED: ELAS-2208 EXT (15:18)
[2017-10-02] MEDS ORDERED: NICO14DI5 TD (15:21)
[2017-10-02] MEDS ORDERED: ULT50X PO (15:21)
[2017-10-02] MEDS ORDERED: [UNRECOGNIZED DRUG - SUPPLY] EXT (15:21)
[2017-10-02 15:29] VITALS: BP 125/78; PULSE 100; TEMP 37; O2SAT 99
--- NOTE | 2017-10-02 16:02 | Discharge Instructions ---
Discharge Instructions Date of Service Oct 02, 2017. Admission Reason for Admission: Pulmonary Embolism Discharge Discharge Diagnosis / Problem: Pulmonary Embolism (clots in the lungs); Acute DVT (clot in leg) Discharge Goals Goal(s): Decrease discomfort, Improve function, Diagnostic testing, Therapeutic intervention Activity Recommendations Activity Limitations: resume your previous activity . Instructions / Follow-Up Instructions / Follow-Up Please follow-up with Dr. Hui on October 05 at 10:05AM * You will be discharged on Xarelto (blood thinner) - take 15mg twice a day for 21 days, then 20mg daily * You can use a warm compress and a compression stocking for the left leg * Use tramadol for pain; only as needed - don't drive if you take this * Stop taking your injectable contraception - follow-up with your soccer player * You must stop smoking - please speak with your primary care doctor about stopping Current Hospital Diet Patient's current hospital diet: Regular Diet Discharge Diet Recommended Diet: Regular Diet Pending Studies Studies pending at discharge: no Medical Emergencies . Who to Call and When: Medical Emergencies: If at any time you feel your situation is an emergency, please call 911 immediately. . Non-Emergent Contact Non-Emergency issues call your: Primary Care Provider, Press Shop Supervisor . . "Provider Documentation" section prepared by Margot Jamison. . VTE Core Measure Inpt VTE Proph given/why not?: Other Anticoagulation [place] Drug Monitoring Program Search Results: patient reviewed within database, no issues identified
[2017-10-02 16:12] VITALS: BP 125/78; PULSE 100; TEMP 37; O2SAT 99
[2017-10-02] MEDS ORDERED: NURSING VERBAL MED ORDER STA (16:14)
--- NOTE | 2017-10-02 16:20 | Discharge Summary ---
Discharge Summary Date of Service Oct 02, 2017. Discharge Summary Admission Date: Oct 01, 2017 at 23:07 Discharge Date: Oct 02, 2017 Discharge Disposition: Home Principal Diagnosis: Acute Pulmonary Embolism Acute LLE DVT Medication Reconciliation New Medications: Elastic Bandages & Supports (Medical Compression Stock) 1 Mis Mis EA EXT, #1 Hot/Cold Therapy Aids (Cvs Hot/Cold Compress) 1 Pad Pad EA EXT, #1 Rivaroxaban (Xarelto) 15 Mg Tab 15 MG PO BID for 21 Days, #42 TABS Nicotine (Nicoderm Cq 14MG Patch) 14 Mg/24 Hr Dis 14 MG TD QAM for 30 Days, #1 BOX Tramadol HCl (Tramadol HCl) 50 Mg Tab 25 MG PO Q6H PRN for Pain for 3 Days, #12 TAB Continued Medications: Ibuprofen (Advil) 200 Mg Tab 200-600 MG PO Q4H PRN for Pain or Fever, TAB Discontinued Medications: Medroxyprogesterone Acetate (C (Depo-Provera Contraceptiv) 150 Mg/Ml Inj 1 DOSE INJ Q3MO Admission Information Physical Exam (per Admitting): DATE OF ADMISSION: 10/01/2017 PRIMARY CARE PHYSICIAN: Dr. Gutierrez. CHIEF COMPLAINT: Left leg swelling. HISTORY OF PRESENT ILLNESS: History obtained from patient and records. Medical history significant for ongoing tobacco abuse. Last week patient was bedridden for about a day due to a flulike illness. The last few days, patient subsequently noted tense and painful left lower extremity swelling. No fever, no chills, worsening pain. No chest pain or shortness of breath. No recollection of trauma. Patient brought to the Emergency Room. Patient noted to be tachycardic in the ER. CTA showed pulmonary emboli within the distal right lower segmental and segmental branches of the right lower lobe. No evidence of heart strain ill-defined, possible thrombosis on the IVC. IV heparin started in the ER. No previous episodes. No recent prolonged travel. No known family history of clots as per patient account. MEDICAL HISTORY: As above. SURGERIES: section. HOME MEDICATIONS: Depo-Provera, contraception, Advil. ALLERGIES: No known drug allergies. FAMILY HISTORY: Stroke. PERSONAL AND SOCIAL HISTORY: Half pack daily. Occasional alcoholic beverage intake . [employer] employee. REVIEW OF SYSTEMS: As per HPI. All 10 systems reviewed. All other ROS negative. PHYSICAL EXAMINATION: VITAL SIGNS: Blood pressure was noted to be 166/104, pulse rate 113, RR 16, temperature 37.8, sats 100 on room air. GENERAL: Noted to be slightly anxious, no respiratory distress. SKIN: Normal color, warm. HEENT: Pale palpebral conjunctiva. No ptosis. Dry mucosa. NECK: Supple, nontender. CHEST: Clear to auscultation. No tenderness. HEART: Regular rate and rhythm, no murmur. ABDOMEN: Some distention, nontender. EXTREMITIES: Tense swollen left lower extremity, tender. NEUROLOGIC: Coherent. No gross focality. LABORATORY DATA: Hemoglobin was noted to be 12.1, hematocrit 32, white blood cell count 9.7, platelets noted to be 323. Sodium 136, potassium 3, chloride 102, CO2 26, BUN 7, creatinine 0.6, glucose was noted to be 95. CTA as above. EKG as per my interpretation: Sinus tachycardia, possible left atrial enlargement, T-wave inversion inferior leads ASSESSMENT: 1. Acute pulmonary embolism likely from extensive left lower extremity clot. Patient predisposed with hormonal contraception, immobilization from recent viral illness 2. Situational hypertension Possibly long-standing w/ note of LAE on EKG. 3. hypokalemia, clinical dehydration secondary to recent illness 4. ongoing tobacco abuse PLAN: PCU IV heparin. Defer discussion regarding choice of oral anticoagulant between patient and AM provider. Follow left lower extremity venous Doppler ultrasound results Patient to contemplate Vascular Surgery consultation for possible localized LLE thrombolytic therapy due to extreme discomfort from market left lower extremity swelling. Patient counselled about hormonal contraception and attendant thromboembolic risks. Outpatient ADMINISTRATIVE STAFF SUPERVISOR follow-up to discuss alternative methods of contraception. Analgesia, monitor BP May need to initiate maintenance medication if with persistent BP elevation. Replace potassium. Nicotine patch. DVT prophylaxis, IV heparin. Full code. Hospital Course This is a 27 year old female with a PMH of tobacco use disorder - presents with multiple PEs and Acute LLE DVT Pulmonary Emboli Acute LLE DVT likely secondary to contraceptives currently on IV heparin vascular surgery consulted for nearly occlusive LLE DVT which is worsening CT venogram of abdomen/pelvis pending discussed anticoagulation - patient is okay with NOAC (Xarelto) Tobacco Use Disorder counseled on cessation, not interested at this time FULL CODE Total time spent on discharge = 50 minutes This includes examination of the patient, discharge planning, medication reconciliation, and communication with other providers. Discharge Instructions Please follow-up with Dr. Hui on October 05 at 10:05AM * You will be discharged on Xarelto (blood thinner) - take 15mg twice a day for 21 days, then 20mg daily * You can use a warm compress and a compression stocking for the left leg * Use tramadol for pain; only as needed - don't drive if you take this * Stop taking your injectable contraception - follow-up with your paper bundler * You must stop smoking - please speak with your primary care doctor about stopping
--- NOTE | 2017-10-02 16:23 | Progress Note ---
Progress Note Date of Service Oct 02, 2017. Progress Note As per vascular surgery, no surgical intervention for the extensive left lower extremity acute DVT. Plan is to continue anticoagulation, tobacco cessation, avoid thrombogenic medications, including hormonal control. Patient is eager to get home - she does not want to stay, stating that her kids are waiting for her at home. She is agreeable to Xarelto use; will give one dose prior to discharge. Case management aware and state that it will only cost $3 for a month supply. She is to use compression stockings and warm compresses for her leg. Denies any shortness of breath/chest pain/palpitations. To return to ER if worsening shortness of breath/chest pain or worsening lower extremity pain.
[2017-10-02] MEDS ORDERED: RIVAROXABAN TAB 15 MG TAB PO ONE (17:00)
== END 2017-10-02 18:03 | disposition home or self-care (01) | DRG 299 ==
LOC: C.EDB 21:05 → C.MED 23:07 → ENRESERV 23:41
PROVIDERS: ADMIT Internal Medicine; ATTEND Family Medicine
DX: I82.412 Acute embolism and thrombosis of left femoral vein (principal); I26.99 Other pulmonary embolism without acute cor pulmonale; F17.200 Nicotine dependence, unspecified, uncomplicated; E87.6 Hypokalemia; Z86.711 Personal history of pulmonary embolism